=== PATIENT | male | born 1970 | race Caucasian/White ===

== ENCOUNTER 2016-10-07 19:58 | Emergency (ER) | payer BC ==
[~2016-10-07] VITALS: Ht 177.8 cm; Wt 92.9 kg
[~2016-10-07 19:58] MED LIST: XNX25 PO
[2016-10-07 20:07] VITALS: TEMP 36.3; Ht 177.8 cm; Wt 92.9 kg
[2016-10-07] MEDS ORDERED: SODIUM CHLORIDE 0.9% 1000ML 1,000 ML IV STA (20:15)
[2016-10-07 20:26] LABS: BASO % 0.2 %; BASO ABS # 0.01 K/uL (0-0.2); COMPLETE YES; EOS % 1.9 %; HEMATOCRIT 44.3 % (42-52); IG% 0.4 %; LYMPH % 44.3 %; LYMPH ABS # 2.38 K/uL (1.2-3.4); MEAN CELL VOLUME 88.4 fL (80-100); MEAN CORPUSCULAR HEMOGLOBIN 30.5 pg (25-34); MEAN CORPUSCULAR HGB CONC 34.5 g/dl (32-36); MEAN PLATELET VOLUME 11.4 fL (7.4-10.4); MONO % 4.7 %; NEUT % 48.5 %; PLATELET COUNT 125 K/uL (130-400); RED BLOOD COUNT 5.01 M/uL (4.7-6.1); WHITE BLOOD COUNT 5.37 K/uL (4.8-10.8)
[2016-10-07] MEDS ORDERED: ONDANSETRON INJ 2 MG/ML 2 ML VIAL IV STA (20:26)
--- NOTE | 2016-10-07 20:34 | EMERGENCY ROOM VISIT NOTE ---
History Report prepared by Cristofer: Jayashree Thornton Under the Supervision of: Dr. Yoandy Schmidt M.D. First contact with patient: 20:07 Chief Complaint: HYPOGLYCEMIA Stated Complaint: NAUSEA, DIZZINESS, HYPOGLYCEMIA History of Present Illness The patient is a 45 year old male who presents to the Emergency Room with complaints of sudden dizziness beginning 2 hours ago. The patient reports that he was having trouble standing and he was also hypoglycemic with a blood glucose level in the 30's. The patient also noticed that he had left testicular pain 1 week ago, but attributed it to riding his bike often. The pain then became a burning sensation and it now jordan when he urinates. He also noticed left flank pain but believes it is musculoskeletal from running. The patient also reports having internal hemorrhoids and sometimes has blood when he defecates. He denies chest pain and shortness of breath. He also reports that he is not diabetic, has not been exposed to chemicals recently, and has no tick bites that he is aware of. Source of History: patient Onset: 2 hours ago Position: other (global) Quality: other (dizziness ) Timing: other (sudden) Associated Symptoms: + urinary symptoms (burning sensation when he urinates ; occasional blood when he defecates ), No chest pain, No SOB Note: other symptoms: left testicular pain, left flank pain Review of Systems See HPI for pertinent positives & negatives. A total of 10 systems reviewed and were otherwise negative. Past Medical & Surgical Medical Problems: (1) Internal hemorrhoid Family History No pertinent family history stated. Social History Marital Status: Occupation Status: employed Current/Historical Medications Scheduled Alprazolam (Xanax *), 0.25 MG PO PRN Allergies Coded Allergies: No Known Allergies (Unverified , 10/07/16) Physical Exam Vital Signs Date Time Temp Pulse Resp B/P (MAP) Pulse Ox O2 Delivery O2 Flow Rate FiO2 10/07/16 22:25 65 18 134/92 99 Room Air 10/07/16 20:58 53 14 97 10/07/16 20:51 51 10/07/16 20:07 134/89 10/07/16 20:07 36.3 67 18 119/75 94 Room Air Physical Exam GENERAL: Patient is anxious and tired appearing and in moderate distress. HEENT: No acute trauma, normocephalic atraumatic, mucous membranes moist, no nasal congestion, no scleral icterus. NECK: No stridor, no adenopathy, no meningismus, trachea is midline. LUNGS: No dyspnea. Clear to auscultation and equal bilaterally. No wheeze, no rhonchi. HEART: Frequent extra beats but regular rate. No murmurs, rubs, gallops appreciated. ABDOMEN: Soft, nontender, bowel sounds positive, no masses appreciated, no peritonitis. BACK: No midline tenderness, no CVA tenderness EXTREMITIES: Normal motion all extremities, no cyanosis, no edema. NEUROLOGIC: Alert and oriented, no acute motor or sensory deficits, no focal weakness, cranial nerves grossly intact. SKIN: No rash, no jaundice, no diaphoresis. Medical Decision & Procedures ER Provider Diagnostic Interpretation: X ray results are stated below per my interpretation and the radiologist's interpretation. CHEST ONE VIEW PORTABLE CLINICAL HISTORY: Weakness NAUSEA, DIZZINESS COMPARISON STUDY: No previous studies for comparison. FINDINGS: The heart is mildly enlarged. There is no focal pulmonary consolidation. There is no overt failure. There are no pleural effusions.[ IMPRESSION: Mild cardiomegaly. No evidence of focal pulmonary consolidation. Electronically signed by: Ishan Gomez M.D. 10/07/2016 8:46 PM Dictated Date/Time: 10/07/2016 8:46 PM Laboratory Results 10/07/16 19:45 Red Blood Count 5.01, Mean Corpuscular Volume 88.4, Mean Corpuscular Hemoglobin 30.5, Mean Corpuscular Hemoglobin Concent 34.5, Mean Platelet Volume 11.4, Neutrophils (%) (Auto) 48.5, Lymphocytes (%) (Auto) 44.3, Monocytes (%) (Auto) 4.7, Eosinophils (%) (Auto) 1.9, Basophils (%) (Auto) 0.2, Neutrophils # (Auto) 2.61, Lymphocytes # (Auto) 2.38, Monocytes # (Auto) 0.25, Eosinophils # (Auto) 0.10, Basophils # (Auto) 0.01 10/07/16 19:45 Test 10/07/16 19:45 10/07/16 21:16 10/07/16 22:23 White Blood Count 5.37 K/uL (4.8-10.8) Red Blood Count 5.01 M/uL (4.7-6.1) Hemoglobin 15.3 g/dL (14.0-18.0) Hematocrit 44.3 % (42-52) Mean Corpuscular Volume 88.4 fL (80-100) Mean Corpuscular Hemoglobin 30.5 pg (25-34) Mean Corpuscular Hemoglobin Concent 34.5 g/dl (32-36) Platelet Count 125 K/uL (130-400) Mean Platelet Volume 11.4 fL (7.4-10.4) Neutrophils (%) (Auto) 48.5 % Lymphocytes (%) (Auto) 44.3 % Monocytes (%) (Auto) 4.7 % Eosinophils (%) (Auto) 1.9 % Basophils (%) (Auto) 0.2 % Neutrophils # (Auto) 2.61 K/uL (1.4-6.5) Lymphocytes # (Auto) 2.38 K/uL (1.2-3.4) Monocytes # (Auto) 0.25 K/uL (0.11-0.59) Eosinophils # (Auto) 0.10 K/uL (0-0.5) Basophils # (Auto) 0.01 K/uL (0-0.2) RDW Standard Deviation 40.5 fL (36.4-46.3) RDW Coefficient of Variation 12.5 % (11.5-14.5) Immature Granulocyte % (Auto) 0.4 % Immature Granulocyte # (Auto) 0.02 K/uL (0.00-0.02) Anion Gap 7.0 mmol/L (3-11) Est Creatinine Clear Calc Drug Dose 121.2 ml/min Estimated GFR () 120.8 Estimated GFR (Non- 104.2 BUN/Creatinine Ratio 19.4 (10-20) Calcium Level 8.5 mg/dl (8.5-10.1) Phosphorus Level 3.2 mg/dl (2.5-4.9) Magnesium Level 2.1 mg/dl (1.8-2.4) Total Bilirubin 0.5 mg/dl (0.2-1) Direct Bilirubin 0.1 mg/dl (0-0.2) Aspartate Amino Transf (AST/SGOT) 26 U/L (15-37) Alanine Aminotransferase (ALT/SGPT) 38 U/L (12-78) Alkaline Phosphatase 45 U/L (45-117) Total Creatine Kinase 127 U/L (39-308) Creatine Kinase MB 1.3 ng/ml (0.5-3.6) Creatine Kinase MB Ratio 1.0 (0-3.0) Troponin I < 0.015 ng/ml (0-0.045) Total Protein 6.9 gm/dl (6.4-8.2) Albumin 3.9 gm/dl (3.4-5.0) Lipase 147 U/L (73-393) Thyroid Stimulating Hormone (TSH) 1.450 uIu/ml (0.300-4.500) Lyme Disease IgG Antibody NEG (NEG) Lyme Disease IgM Antibody NEG (NEG) Urine Color DK YELLOW Urine Appearance CLEAR (CLEAR) Urine pH 6.0 (4.5-7.5) Urine Specific [place] 1.023 (1.000-1.030) Urine Protein NEG (NEG) Urine Glucose (UA) NEG (NEG) Urine Ketones NEG (NEG) Urine Occult Blood NEG (NEG) Urine Nitrite NEG (NEG) Urine Bilirubin NEG (NEG) Urine Urobilinogen NEG (NEG) Urine Leukocyte Esterase NEG (NEG) Urine WBC (Auto) 1-5 /hpf (0-5) Urine RBC (Auto) 0-4 /hpf (0-4) Urine Hyaline Casts (Auto) 1-5 /lpf (0-5) Urine Epithelial Cells (Auto) 10-20 /lpf (0-5) Urine Bacteria (Auto) NEG (NEG) Bedside Glucose 133 mg/dl (70-99) Laboratory results as reviewed by me. Medications Administered Medications (Trade) Dose Ordered Sig/Sky Route Start Time Stop Time Status Last Admin Dose Admin Sodium Chloride 1,000 ml @ 999 mls/hr Q1H1M STAT IV 10/07/16 20:15 10/07/16 21:15 DC 10/07/16 20:33 999 MLS/HR Ondansetron HCl (Zofran Inj) 4 mg NOW STAT IV 10/07/16 20:26 10/07/16 20:27 DC 10/07/16 20:33 4 MG ECG Indication: other (dizziness ) Rate (beats per minute): 64 Rhythm: sinus rhythm Findings: PAC (multiple), no acute ischemic change, other (QTc of 460) ED Course 2006: The patient was evaluated in room B7. A complete history and physical exam was performed. 2015: Ordered Sodium Chloride 1,000 ml @ 999 mls/hr IV. 2025: Ordered Zofran Inj 4 mg IV. 2221: The patient is feeling well and would like to go home. I reviewed symptoms that would require return. I asked case management to assist with him following up with his PCP. 2229: Reevaluated the patient. Discussed results and discharge instructions: He verbalized understanding and agreement. The patient is ready for discharge. Medical Decision Differential: NSR, SVT, PACs, PVCs, Cardiac Dysrhythmia, Endocrine Dysfunction, Eletrolyte/Metabolic Abnormality, Pulmonary Embolism, Infectious, GI, amongst other pathologies entertained. Medication Reconciliation: I attest that I have personally reviewed the patient 's current medication list. Blood pressure screening: Patient was found to have an elevated blood pressure and will be seen by his PCP this week. 45 yr old male with near syncopal event and EMS arrival revealed hypoglycemia. Given oral glucose and transferred to ED. Still not feeling great thus given IV fluids and Zofran with resolution of symptoms. Glucose here normal, and normal each time taken. suspects that they had trouble getting initial BSG in field and there is possibility that this may have been errant reading. Regardless he looks well now, labs all normal, EKG unremarkable, trop negative and patient feeling well. Admits likelihood he was dehydrated. No other complaints. No evidence neurologic deficits. Seems reasonable to make sure he follows up with PCP. Comfortable with going home. Reviewed symptoms requiring RTED. Impression Primary Impression: Near syncope Additional Impression: Hypoglycemia Scribe Attestation The scribe's documentation has been prepared under my direction and personally reviewed by me in its entirety. I confirm that the note above accurately reflects all work, treatment, procedures, and medical decision making performed by me. Departure Information Dispostion Home / Self-Care Referrals No Doctor, Assigned (PCP) Patient Instructions ED Near Syncope Unkn, My [facility] Problem Qualifiers
[2016-10-07 20:44] LABS: ALT/SGPT 38 U/L (12-78); BLOOD UREA NITROGEN 18 mg/dl (7-18); BUN/CREATININE RATIO 19.4 (10-20); CALCIUM 8.5 mg/dl (8.5-10.1); CARBON DIOXIDE 28 mmol/L (21-32); CHLORIDE 105 mmol/L (98-107); GLUCOSE 106 mg/dl (70-99); MAGNESIUM 2.1 mg/dl (1.8-2.4); POTASSIUM 3.4 mmol/L (3.5-5.1); SODIUM 140 mmol/L (136-145)
--- NOTE | 2016-10-07 20:48 | DIAGNOSTIC IMAGING REPORT ---
CHEST ONE VIEW PORTABLE CLINICAL HISTORY: Weakness NAUSEA, DIZZINESS COMPARISON STUDY: No previous studies for comparison. FINDINGS: The heart is mildly enlarged. There is no focal pulmonary consolidation. There is no overt failure. There are no pleural effusions.[ IMPRESSION: Mild cardiomegaly. No evidence of focal pulmonary consolidation. Electronically signed by: Ishan Gomez M.D. 10/07/2016 8:46 PM Dictated Date/Time: 10/07/2016 8:46 PM
[2016-10-07 20:53] LABS: ALKALINE PHOSPHATASE 45 U/L (45-117); AST/SGOT 26 U/L (15-37); PHOSPHORUS 3.2 mg/dl (2.5-4.9)
[2016-10-07 21:25] LABS: LYME DISEASE AB IGG NEG (NEG); LYME DISEASE AB IGM NEG (NEG)
[2016-10-07 22:05] LABS: URINE APPEARANCE CLEAR (CLEAR); URINE BILIRUBIN NEG (NEG); URINE COLOR DK YELLOW; URINE NITRITE NEG (NEG); URINE SPECIFIC GRAVITY 1.023 (1.000-1.030); UROBILINOGEN NEG (NEG); ZZUR CULT IF INDIC CLEAN CATCH NO
[2016-10-07 22:06] LABS: MANUAL MICROSCOPIC REQUIRED? NO; REVIEW REQ? NO
[2016-10-07 22:25] VITALS: BP 134/92; PULSE 65; O2SAT 99
== END 2016-10-07 22:43 | disposition home or self-care (01) ==
LOC: EDBD 19:58 → C.EDB 20:00
DX: R55 Syncope and collapse (principal); E16.2 Hypoglycemia, unspecified; K64.8 Other hemorrhoids